=== PATIENT | male | born 1995 | race American Indian/Alaskan Native ===

== ENCOUNTER 2017-09-06 16:03 | Emergency (ER) | payer OTHER ==
[2017-09-06 16:19] VITALS: O2SAT 99; BMI 23.5
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
[2017-09-06 17:26] VITALS: BP 120/59; PULSE 85; RESP 19; TEMP 98
== END 2017-09-06 17:24 | disposition home or self-care (01) ==
LOC: ED 16:03
DX: Z04.1 Encounter for examination and observation following transport accident (principal)